=== PATIENT | male | born 1990 | race Caucasian/White ===

== ENCOUNTER 2016-08-02 16:01 | Emergency (ER) | payer BC, OTHER ==
[~2016-08-02 16:01] MED LIST: DUCO5TAB PO; PROC2.5C PR
[2016-08-02] MEDS ORDERED: NAPROXEN 250 MG TAB As Ordered ONE (17:46)
[2016-08-02] MEDS ORDERED: NORCO, ANEXSIA 5/325MG TABLET (HYDROcodone/ACETAMINOPHEN) As Ordered ONE (17:46)
[2016-08-02] MEDS ORDERED: PENICILLIN V POTASSIUM 500 MG TAB As Ordered ONE (17:48)
--- NOTE | 2016-08-02 17:58 | EDDOCDS ---
Physician Documentation [facility] Name: Channing Cuenca Age: 25 yrs Sex: Male : 1990 Arrival Date: 08/02/2016 Time: 16:01 Bed 13 Private MD: Luyc Troncoso Disposition: 08/02 17:52 Critical Care: Critical care not applicable. le Disposition: 08/02/16 17:42 Discharged to Home/Self Care. Impression: Cracked tooth - root exposed. - Condition is Stable. - Discharge Instructions: Dental Fracture, Dental Pain. - Prescriptions for [place] 5- 325 mg Oral Tablet - take 1 tablet by ORAL route every 6 hours As needed MDD: 4 tabs; 6 tablet. penicillin V potassium 500 mg Oral Tablet - take 1 tablet by ORAL route 3 times per day for 10 days; 30 tablet. Naprosyn 500 mg Oral Tablet - take 1 tablet by ORAL route 2 times per day take with food; 30 tablet. - Medication Reconciliation, Local Pharmacy Hours form. - Follow up: Lucy Troncoso; When: Call to arrange an appointment; Reason: Recheck today's complaints, Continuance of care, Further pain management until seen by dentist. Follow up: Maurisio Espinal MD; When: Call to arrange an appointment; Reason: Recheck today's complaints, Continuance of care. - Problem is new. - Symptoms are unchanged. - Notes: Call [facility] at [phone] if unable to get seen by your dentist or Dr Espinal Return to the ED for worsening pain, especiallywith facial swelling, difficulty swallowing/drooling, inability to open your mouth more than the width of 2 fingers, fever or any other concerns Historical: - Allergies: No known drug Allergies; - Home Meds: 1. acetaminophen 325 mg Oral tab 2 tabs every 4 hours as needed (Last dose: 08/01/2016) - PMHx: none; - PSHx: none; - Social history: Smoking status: Patient uses tobacco products, current some day smoker. No barriers to communication noted, The patient speaks fluent Jordanian. - Family history: Not pertinent. - : The pt / caregiver states he / she is not on anticoagulants. Home medication list is obtained from the patient. - Exposure Risk Screening:: None identified. Vital Signs: 16:03 BP 157 / 86; Pulse 95; Resp 18 S; Temp 98.4(O); Pulse Ox 99% on R/A; Weight 97.52 kg / gr2 214.99 lbs (R); Height 6 ft. 2 in. (187.96 cm) (R); Pain 7/10; 16:03 Body Mass Index 27.60 (97.52 kg, 187.96 cm) gr2 MDM: 17:41 Penicillin VK 500 mg PO once ordered. le 17:41 HYDROcodone-acetaminophen 5 mg-325 mg 1 tabs PO once ordered. le 17:41 Naproxen 500 mg PO once; administer with food or milk ordered. le 17:57 [facility] Payment Agreement was scanned into [employer] and attached to record. gjb Administered Medications: 17:52 Drug: Penicillin VK 500 mg [penicillin V potassium 250 mg tablet (2 tabs)] Route: PO; kr3 17:57 Follow up: Response: Pt left department before re-evaluation is appropriate kr3 17:52 Drug: HYDROcodone-acetaminophen 1 tabs [hydrocodone 5 mg-acetaminophen 325 mg tablet (1 kr3 tabs)] Route: PO; 17:57 Follow up: Response: Pt left department before re-evaluation is appropriate kr3 17:52 Drug: Naproxen 500 mg [naproxen 250 mg tablet (2 tabs)] Route: PO; kr3 17:57 Follow up: Response: Pt left department before re-evaluation is appropriate kr3 Signatures: Lianne Macias RN RN kpj Yvette FonsecaRN RN kr3 Sandra Dc, Remedios Mondragon The chart was reviewed and I authenticate all verbal orders and agree with the evaluation and treatment provided.Attachments: 17:57 [facility] Payment Agreement gjb [email or web address]
--- NOTE | 2016-08-02 17:58 | EDDOCDS ---
Nurse's Notes [facility] Name: Channing Cuenca Age: 25 yrs Sex: Male : 1990 Arrival Date: 08/02/2016 Time: 16:01 Bed 13 Private MD: Lucy Troncoso Diagnosis: Cracked tooth-root exposed Presentation: 08/02 16:05 Presenting complaint: Patient states: broken upper molar left woke with pain at 0100. [facility] Adult Sepsis Screening: The patient does not have new or worsening altered mentation. Patient's respiratory rate is less than 22. Systolic blood pressure is greater than 100. Patient has a qSOFA score of 0- Negative Sepsis Screen. Suicide/Homicide risk assessment- the patient denies having any suicidal and/or homicidal ideations and does not present with any other emotional, behavioral or mental health complaints. Status: Patient is not a service center technician or dependent. Transition of care: patient was not received from another setting of care. 16:05 Acuity: LUCAS Level 5 [facility] 16:05 Method Of Arrival: Walkin/Carried/Asstd [facility] Triage Assessment: 16:07 General: Appears well nourished, well groomed, Behavior is appropriate for age. Pain: [facility] Location: upper left second molar Pain currently is 9 out of 10 on a pain scale. Pt Declines HIV testing. Neurological: Level of Consciousness is awake, alert, Oriented to person, place, time. EENT: Reports pain in upper left second molar Pain is 9 out of 10 on a pain scale. Respiratory: Airway is patent Respiratory effort is even, unlabored, Respiratory pattern is regular, symmetrical. Derm: Skin is pink, warm & dry. Historical: - Allergies: No known drug Allergies; - Home Meds: 1. acetaminophen 325 mg Oral tab 2 tabs every 4 hours as needed (Last dose: 08/01/2016) - PMHx: none; - PSHx: none; - Social history: Smoking status: Patient uses tobacco products, current some day smoker. No barriers to communication noted, The patient speaks fluent Yoruba. - Family history: Not pertinent. - : The pt / caregiver states he / she is not on anticoagulants. Home medication list is obtained from the patient. - Exposure Risk Screening:: None identified. Screenin:56 Screening information is obtained from the patient. Fall risk: No risks identified. kr3 Assistance ADL's: requires no assistance with activities of daily living. Abuse/DV Screen: The patient / caregiver reports he/she is: not in a situation that causes fear, pain or injury. Nutritional screening: No deficits noted. Advance Directives: Currently, there is no health care proxy. home support is adequate. Assessment: 17:01 Adult Sepsis Screening: The patient does not have new or worsening altered mentation. dsf Patient's respiratory rate is less than 22. Systolic blood pressure is greater than 100. Patient has a qSOFA score of 0- Negative Sepsis Screen. General: Appears in no apparent distress, Behavior is appropriate for age, cooperative. Pain: Location: left jaw and head Pain currently is 9 out of 10 on a pain scale. Quality of pain is described as throbbing, Pain began 2 months ago Is continuous. Neurological: Level of Consciousness is awake, alert, Oriented to person, place, time. Cardiovascular: No deficits noted. Respiratory: No deficits noted. Derm: Skin is pink, warm & dry. Vital Signs: 16:03 BP 157 / 86; Pulse 95; Resp 18 S; Temp 98.4(O); Pulse Ox 99% on R/A; Weight 97.52 kg gr2 (R); Height 6 ft. 2 in. (187.96 cm) (R); Pain 7/10; 16:03 Body Mass Index 27.60 (97.52 kg, 187.96 cm) gr2 Vitals: 16:03 Log In Time: August 02, 2016 at 16:03. gr2 ED Course: 16:02 Patient visited by Stefani Delarosa. gr2 16:02 Lucy Troncoso is Private Physician. gr2 16:02 Patient moved to Waiting gr2 16:04 Patient visited by Stefani Delarosa. gr2 16:04 Patient moved to Pre RCE gr2 16:06 Triage Initiated kpj 16:35 Patient moved to 13 srm 17:02 Patient visited by Jasmin Wood RN. dsf 17:24 [facility] le 17:42 Lucy Troncoso is Referral Physician. le 17:42 Maurisio Espinal MD is Referral Physician. le 17:56 The patient / caregiver is instructed regarding the plan of care and ED course. Patient kr3 has correct armband on for positive identification. 17:56 No IV's were initiated during this patient's visit. No procedures done that require kr3 assistance. 17:57 [facility] Payment Agreement was scanned into [employer] and attached to record. gjb Administered Medications: 17:52 Drug: Penicillin VK 500 mg [penicillin V potassium 250 mg tablet (2 tabs)] Route: PO; kr3 17:57 Follow up: Response: Pt left department before re-evaluation is appropriate kr3 17:52 Drug: HYDROcodone-acetaminophen 1 tabs [hydrocodone 5 mg-acetaminophen 325 mg tablet (1 kr3 tabs)] Route: PO; 17:57 Follow up: Response: Pt left department before re-evaluation is appropriate kr3 17:52 Drug: Naproxen 500 mg [naproxen 250 mg tablet (2 tabs)] Route: PO; kr3 17:57 Follow up: Response: Pt left department before re-evaluation is appropriate kr3 Order Results: There are currently no results for this order. Outcome: 17:42 Discharge ordered by Provider. kalpana 17:56 Discharge Assessment: patient administered narcotics - yes. Pt provided with safe kr3 discharge. The following High Risk Discharge criteria are identified: None. Discharged to home ambulatory, with family. Condition: stable. Discharge instructions given to patient, Instructed on discharge instructions, follow up and referral plans. medication usage, no driving heavy equipment, no drinking with medication, Demonstrated understanding of instructions, medications, Pt was receptive of discharge instructions/ teaching. Prescriptions given X 3. No special radiology studies were completed. Property sent home with patient. 17:57 Patient left the ED. kr3 Signatures: Lianne Macias RN RN kpj Michelson, Staci, RN RN srm Robie, Kathleen, RN RN rod3 Sandra Dc FNP FNP le Fuller, Desiree, RN RN dsf Raymond, Gainslee gr2 Beck, Gabriela gjb MTDD
--- NOTE | 2016-08-04 18:58 | EDDOCDS ---
Nurse's Notes [facility] Name: Channing Cuenca Age: 25 yrs Sex: Male : 1990 Arrival Date: 08/02/2016 Time: 16:01 Bed 13 Private MD: Lucy Troncoso Diagnosis: Cracked tooth-root exposed Presentation: 08/02 16:05 Presenting complaint: Patient states: broken upper molar left woke with pain at 0100. [facility] Adult Sepsis Screening: The patient does not have new or worsening altered mentation. Patient's respiratory rate is less than 22. Systolic blood pressure is greater than 100. Patient has a qSOFA score of 0- Negative Sepsis Screen. Suicide/Homicide risk assessment- the patient denies having any suicidal and/or homicidal ideations and does not present with any other emotional, behavioral or mental health complaints. Status: Patient is not a social and human services assistant or dependent. Transition of care: patient was not received from another setting of care. 16:05 Acuity: LUCAS Level 5 [facility] 16:05 Method Of Arrival: Walkin/Carried/Asstd [facility] Triage Assessment: 16:07 General: Appears well nourished, well groomed, Behavior is appropriate for age. Pain: [facility] Location: upper left second molar Pain currently is 9 out of 10 on a pain scale. Pt Declines HIV testing. Neurological: Level of Consciousness is awake, alert, Oriented to person, place, time. EENT: Reports pain in upper left second molar Pain is 9 out of 10 on a pain scale. Respiratory: Airway is patent Respiratory effort is even, unlabored, Respiratory pattern is regular, symmetrical. Derm: Skin is pink, warm & dry. Historical: - Allergies: No known drug Allergies; - Home Meds: 1. acetaminophen 325 mg Oral tab 2 tabs every 4 hours as needed (Last dose: 08/01/2016) - PMHx: none; - PSHx: none; - Social history: Smoking status: Patient uses tobacco products, current some day smoker. No barriers to communication noted, The patient speaks fluent Kiswahili. - Family history: Not pertinent. - : The pt / caregiver states he / she is not on anticoagulants. Home medication list is obtained from the patient. - Exposure Risk Screening:: None identified. Screenin:56 Screening information is obtained from the patient. Fall risk: No risks identified. kr3 Assistance ADL's: requires no assistance with activities of daily living. Abuse/DV Screen: The patient / caregiver reports he/she is: not in a situation that causes fear, pain or injury. Nutritional screening: No deficits noted. Advance Directives: Currently, there is no health care proxy. home support is adequate. Assessment: 17:01 Adult Sepsis Screening: The patient does not have new or worsening altered mentation. dsf Patient's respiratory rate is less than 22. Systolic blood pressure is greater than 100. Patient has a qSOFA score of 0- Negative Sepsis Screen. General: Appears in no apparent distress, Behavior is appropriate for age, cooperative. Pain: Location: left jaw and head Pain currently is 9 out of 10 on a pain scale. Quality of pain is described as throbbing, Pain began 2 months ago Is continuous. Neurological: Level of Consciousness is awake, alert, Oriented to person, place, time. Cardiovascular: No deficits noted. Respiratory: No deficits noted. Derm: Skin is pink, warm & dry. Vital Signs: 16:03 BP 157 / 86; Pulse 95; Resp 18 S; Temp 98.4(O); Pulse Ox 99% on R/A; Weight 97.52 kg gr2 (R); Height 6 ft. 2 in. (187.96 cm) (R); Pain 7/10; 16:03 Body Mass Index 27.60 (97.52 kg, 187.96 cm) gr2 Vitals: 16:03 Log In Time: August 02, 2016 at 16:03. gr2 ED Course: 16:02 Patient visited by Stefani Delarosa. gr2 16:02 Lucy Troncoso is Private Physician. gr2 16:02 Patient moved to Waiting gr2 16:04 Patient visited by Stefani Delarosa. gr2 16:04 Patient moved to Pre RCE gr2 16:06 Triage Initiated kpj 16:35 Patient moved to 13 srm 17:02 Patient visited by Jasmin Wood RN. dsf 17:24 Sandra Dc FNP is [facility]. le 17:42 Lucy Troncoso is Referral Physician. le 17:42 Maurisio Espinal MD is Referral Physician. le 17:56 The patient / caregiver is instructed regarding the plan of care and ED course. Patient kr3 has correct armband on for positive identification. 17:56 No IV's were initiated during this patient's visit. No procedures done that require kr3 assistance. 17:57 [facility] Payment Agreement was scanned into [employer] and attached to record. lynda 08/03 12:32 T-Sheet-- Draft Copy was scanned into [employer] and attached to record. gb Administered Medications: 08/02 17:52 Drug: Penicillin VK 500 mg [penicillin V potassium 250 mg tablet (2 tabs)] Route: PO; kr3 17:57 Follow up: Response: Pt left department before re-evaluation is appropriate kr3 17:52 Drug: HYDROcodone-acetaminophen 1 tabs [hydrocodone 5 mg-acetaminophen 325 mg tablet (1 kr3 tabs)] Route: PO; 17:57 Follow up: Response: Pt left department before re-evaluation is appropriate kr3 17:52 Drug: Naproxen 500 mg [naproxen 250 mg tablet (2 tabs)] Route: PO; kr3 17:57 Follow up: Response: Pt left department before re-evaluation is appropriate kr3 Order Results: There are currently no results for this order. Outcome: 17:42 Discharge ordered by Provider. kalpana 17:56 Discharge Assessment: patient administered narcotics - yes. Pt provided with safe kr3 discharge. The following High Risk Discharge criteria are identified: None. Discharged to home ambulatory, with family. Condition: stable. Discharge instructions given to patient, Instructed on discharge instructions, follow up and referral plans. medication usage, no driving heavy equipment, no drinking with medication, Demonstrated understanding of instructions, medications, Pt was receptive of discharge instructions/ teaching. Prescriptions given X 3. No special radiology studies were completed. Property sent home with patient. 17:57 Patient left the ED. kr3 Signatures: Lianne Macias, RN RN Norma Barros RN RN [facility] Aarti, Isabel, Reg Reg Yvette AdamsRN RN rod3 Sandra Dc FNP FNP le Fuller, Desiree, RN RN dsf Raymond, Gainslee gr2 Remedios Medina Chart Complete MTDD
--- NOTE | 2016-08-04 18:58 | EDDOCDS ---
Physician Documentation [facility] Name: Channing Cuenca Age: 25 yrs Sex: Male : 1990 Arrival Date: 08/02/2016 Time: 16:01 Bed 13 Private MD: Lucy Troncoso Disposition: 08/02 17:52 Critical Care: Critical care not applicable. le Disposition: 08/02/16 17:42 Discharged to Home/Self Care. Impression: Cracked tooth - root exposed. - Condition is Stable. - Discharge Instructions: Dental Fracture, Dental Pain. - Prescriptions for [place] 5- 325 mg Oral Tablet - take 1 tablet by ORAL route every 6 hours As needed MDD: 4 tabs; 6 tablet. penicillin V potassium 500 mg Oral Tablet - take 1 tablet by ORAL route 3 times per day for 10 days; 30 tablet. Naprosyn 500 mg Oral Tablet - take 1 tablet by ORAL route 2 times per day take with food; 30 tablet. - Medication Reconciliation, Local Pharmacy Hours form. - Follow up: Lucy Troncoso; When: Call to arrange an appointment; Reason: Recheck today's complaints, Continuance of care, Further pain management until seen by dentist. Follow up: Maurisio Espinal MD; When: Call to arrange an appointment; Reason: Recheck today's complaints, Continuance of care. - Problem is new. - Symptoms are unchanged. - Notes: Call [facility] at [phone] if unable to get seen by your dentist or Dr Espinal Return to the ED for worsening pain, especiallywith facial swelling, difficulty swallowing/drooling, inability to open your mouth more than the width of 2 fingers, fever or any other concerns Historical: - Allergies: No known drug Allergies; - Home Meds: 1. acetaminophen 325 mg Oral tab 2 tabs every 4 hours as needed (Last dose: 08/01/2016) - PMHx: none; - PSHx: none; - Social history: Smoking status: Patient uses tobacco products, current some day smoker. No barriers to communication noted, The patient speaks fluent Macedonian. - Family history: Not pertinent. - : The pt / caregiver states he / she is not on anticoagulants. Home medication list is obtained from the patient. - Exposure Risk Screening:: None identified. Vital Signs: 16:03 BP 157 / 86; Pulse 95; Resp 18 S; Temp 98.4(O); Pulse Ox 99% on R/A; Weight 97.52 kg / gr2 214.99 lbs (R); Height 6 ft. 2 in. (187.96 cm) (R); Pain 7/10; 16:03 Body Mass Index 27.60 (97.52 kg, 187.96 cm) gr2 MDM: 17:41 Penicillin VK 500 mg PO once ordered. le 17:41 HYDROcodone-acetaminophen 5 mg-325 mg 1 tabs PO once ordered. le 17:41 Naproxen 500 mg PO once; administer with food or milk ordered. le 17:57 [facility] Payment Agreement was scanned into [employer] and attached to record. gjb 08/03 12:32 T-Sheet-- Draft Copy was scanned into [employer] and attached to record. gb Administered Medications: 08/02 17:52 Drug: Penicillin VK 500 mg [penicillin V potassium 250 mg tablet (2 tabs)] Route: PO; kr3 17:57 Follow up: Response: Pt left department before re-evaluation is appropriate kr3 17:52 Drug: HYDROcodone-acetaminophen 1 tabs [hydrocodone 5 mg-acetaminophen 325 mg tablet (1 kr3 tabs)] Route: PO; 17:57 Follow up: Response: Pt left department before re-evaluation is appropriate kr3 17:52 Drug: Naproxen 500 mg [naproxen 250 mg tablet (2 tabs)] Route: PO; kr3 17:57 Follow up: Response: Pt left department before re-evaluation is appropriate kr3 Signatures: Lianne Macias RN RN Isabel Campbell, Polo Reg Yvette Adams RN RN kr3 Sandra Dc, Remedios Mondragon The chart was reviewed and I authenticate all verbal orders and agree with the evaluation and treatment provided.Attachments: 17:57 [facility] Payment Agreement [facility] 08/03 12:32 T-Sheet-- Draft Copy gb Chart Complete MTDD
--- NOTE | 2016-08-04 18:58 | EDDOCDS ---
Physician Documentation [facility] Name: Channing Cuenca Age: 25 yrs Sex: Male : 1990 Arrival Date: 08/02/2016 Time: 16:01 Bed 13 Private MD: Lcuy Troncoso Disposition: 08/02 17:52 Critical Care: Critical care not applicable. le Disposition: 08/02/16 17:42 Discharged to Home/Self Care. Impression: Cracked tooth - root exposed. - Condition is Stable. - Discharge Instructions: Dental Fracture, Dental Pain. - Prescriptions for [place] 5- 325 mg Oral Tablet - take 1 tablet by ORAL route every 6 hours As needed MDD: 4 tabs; 6 tablet. penicillin V potassium 500 mg Oral Tablet - take 1 tablet by ORAL route 3 times per day for 10 days; 30 tablet. Naprosyn 500 mg Oral Tablet - take 1 tablet by ORAL route 2 times per day take with food; 30 tablet. - Medication Reconciliation, Local Pharmacy Hours form. - Follow up: Lucy Troncoso; When: Call to arrange an appointment; Reason: Recheck today's complaints, Continuance of care, Further pain management until seen by dentist. Follow up: Maurisio Espinal MD; When: Call to arrange an appointment; Reason: Recheck today's complaints, Continuance of care. - Problem is new. - Symptoms are unchanged. - Notes: Call [facility] at [phone] if unable to get seen by your dentist or Dr Espinal Return to the ED for worsening pain, especiallywith facial swelling, difficulty swallowing/drooling, inability to open your mouth more than the width of 2 fingers, fever or any other concerns Historical: - Allergies: No known drug Allergies; - Home Meds: 1. acetaminophen 325 mg Oral tab 2 tabs every 4 hours as needed (Last dose: 08/01/2016) - PMHx: none; - PSHx: none; - Social history: Smoking status: Patient uses tobacco products, current some day smoker. No barriers to communication noted, The patient speaks fluent Kittitian. - Family history: Not pertinent. - : The pt / caregiver states he / she is not on anticoagulants. Home medication list is obtained from the patient. - Exposure Risk Screening:: None identified. Vital Signs: 16:03 BP 157 / 86; Pulse 95; Resp 18 S; Temp 98.4(O); Pulse Ox 99% on R/A; Weight 97.52 kg / gr2 214.99 lbs (R); Height 6 ft. 2 in. (187.96 cm) (R); Pain 7/10; 16:03 Body Mass Index 27.60 (97.52 kg, 187.96 cm) gr2 MDM: 17:41 Penicillin VK 500 mg PO once ordered. le 17:41 HYDROcodone-acetaminophen 5 mg-325 mg 1 tabs PO once ordered. le 17:41 Naproxen 500 mg PO once; administer with food or milk ordered. le 17:57 [facility] Payment Agreement was scanned into [employer] and attached to record. gjb 08/03 12:32 T-Sheet-- Draft Copy was scanned into [employer] and attached to record. gb Administered Medications: 08/02 17:52 Drug: Penicillin VK 500 mg [penicillin V potassium 250 mg tablet (2 tabs)] Route: PO; kr3 17:57 Follow up: Response: Pt left department before re-evaluation is appropriate kr3 17:52 Drug: HYDROcodone-acetaminophen 1 tabs [hydrocodone 5 mg-acetaminophen 325 mg tablet (1 kr3 tabs)] Route: PO; 17:57 Follow up: Response: Pt left department before re-evaluation is appropriate kr3 17:52 Drug: Naproxen 500 mg [naproxen 250 mg tablet (2 tabs)] Route: PO; kr3 17:57 Follow up: Response: Pt left department before re-evaluation is appropriate kr3 Signatures: Lianne Macias RN RN Isabel Campbell, Polo Reg Yvette Adams RN RN kr3 Sandra Dc, Remedios Mondragon The chart was reviewed and I authenticate all verbal orders and agree with the evaluation and treatment provided.Attachments: 17:57 [facility] Payment Agreement [facility] 08/03 12:32 T-Sheet-- Draft Copy gb Chart Complete MTDD
== END 2016-08-02 17:57 | disposition home or self-care (01) ==
LOC: M ED 16:01
DX: K08.9 Disorder of teeth and supporting structures, unspecified (principal); F17.200 Nicotine dependence, unspecified, uncomplicated